=== PATIENT | female | born 1955 | race Two or more races ===

== ENCOUNTER 2022-04-06 08:00 | Day surgery (SDC) | payer OTHER | END 2022-04-06 14:20 | disposition home or self-care (01) | LOC: AMB-ENDOS 08:00 | PROVIDERS: ATTEND Colon & Rectal Surgery | DX: K63.5 Polyp of colon (principal); K64.4 Residual hemorrhoidal skin tags; I10 Essential (primary) hypertension; Z20.822 Contact with and (suspected) exposure to COVID-19 ==

== ENCOUNTER 2022-04-13 09:32 | Outpatient (CLI) | payer OTHER ==
[~2022-04-13 09:32] MED LIST: ACTIVELLA 1 MG1 EACH PO; ADULT LOW DOSE81 M1 PO; PROTONIX40 MG PO; TOPAMAX200 MG PO; TOPROL XL100 M1 PO
== END 2022-04-13 09:47 | disposition home or self-care (01) ==
LOC: TOM 09:32
PROVIDERS: ATTEND Colon & Rectal Surgery
DX: K63.5 Polyp of colon (principal)

== ENCOUNTER 2022-04-15 08:23 | Inpatient (IN) | payer OTHER ==
[~2022-04-15] VITALS: Ht 157.5 cm; Wt 61.2 kg
[2022-04-18] MEDS ORDERED: ESTRADIOL2 MG (09:35)
[2022-04-18] MEDS ORDERED: CILOSTAZOL50 MG (09:35)
[2022-04-18] MEDS ORDERED: ATORVASTATIN CA10 MG (09:35)
[2022-04-18] MEDS ORDERED: BACLOFEN10 MG (09:35)
[2022-04-18] MEDS ORDERED: TOPIRAMATE100 MG (09:35)
[2022-04-18] MEDS ORDERED: GABAPENTIN400 MG (09:36)
== END 2022-04-21 22:48 | disposition home or self-care (01) | DRG 331 ==
LOC: O/R 04-18 06:43 → SURH 04-18 06:43 → SURG 04-18 07:21 → SURH 04-18 19:23
PROVIDERS: ADMIT Colon & Rectal Surgery; ATTEND Colon & Rectal Surgery
PROC: 07BB4ZZ Excision of Mesenteric Lymphatic, Percutaneous Endoscopic Approach (ICD-10-PCS; 2022-04-18)
PROC: 0DTF4ZZ Resection of Right Large Intestine, Percutaneous Endoscopic Approach (ICD-10-PCS; principal; 2022-04-18 09:00)
DX: D12.0 Benign neoplasm of cecum (principal); R59.0 Localized enlarged lymph nodes; I11.9 Hypertensive heart disease without heart failure